=== PATIENT | male | born 1965 | race Caucasian/White ===

== ENCOUNTER 2018-09-02 20:29 | Emergency (ER) | payer BC, OTHER ==
[~2018-09-02 20:29] MED LIST: ISOVUE-370 76%-LOCM 1 ML ONE
--- NOTE | 2018-09-02 20:59 | RAD ---
ONE VIEW CHEST: 09/02/18 HISTORY: Sudden onset weakness and difficulty breathing. COMPARISON: None. FINDINGS: Portable upright chest: Normal cardiac silhouette. Pulmonary vessels and hilum are normal. Costophrenic angles are clear. No consolidation or mass. No pneumothorax or osseous abnormality. IMPRESSION: No acute cardiopulmonary process. POS: [facility]
[2018-09-02 21:21] LABS: #Eosinphils 0.3 thou/uL (0.0-0.7); #Lymphocytes 1.9 thou/uL (1.20-3.40); #Monocytes 0.5 thou/uL (0.11-0.59); #Neutrophils 2.4 thou/uL (1.40-6.50); %Basophils 0.6 % (0.0-1.0); %Eosinophils 6.1 % (0.0-10.0); %Lymphocytes 36.6 % (21.0-51.0); %Neutrophils 46.7 % (42.0-75.0); Hemoglobin 14.6 g/dL (14.0-18.0); Mean Corpuscular HGB CONC 35.4 g/dL (32.0-36.0); Mean Corpuscular Hemoglobin 32.3 pg (27.0-31.0); Mean Corpuscular Volume 91.1 fL (78.0-98.0); Mean Platelet Volume 8.3 fL (7.4-10.4); Platelet Count 223 thou/uL (130-400); RBC Distribution Width 13.9 % (11.5-14.5); Red Blood Cell (RBC) Count 4.52 mill/uL (4.70-6.10); White Blood Cell (WBC) Count 5.2 thou/uL (4.8-10.8)
[2018-09-02 21:41] LABS: ALT (SGPT) 62 U/L (8-55); AST (SGOT) 39 U/L (5-34); Albumin 4.3 g/dL (3.5-5.0); Alkaline Phosphatase 80 U/L (40-150); Anion Gap 18 mmol/L (10-20); BUN (Urea Nitrogen) 19 mg/dL (8.4-25.7); Bilirubin, Total 0.3 mg/dL (0.2-1.2); CK (CPK) 375 U/L (30-200); Calc. Creatinine Clearance 0 mL/min (70-130); Calcium 8.6 mg/dL (7.8-10.44); Carbon Dioxide 19 mmol/L (22-29); Chloride 107 mmol/L (98-107); Estimated GFR-MDRD 61; Globulin 2.6 g/dL (2.4-3.5); Glucose 78 mg/dL (70-105); Protein, Total 6.9 g/dL (6.0-8.3); Sodium 140 mmol/L (136-145)
[2018-09-02 21:51] LABS: CKMB 4.9 ng/mL (0-6.6); Troponin I Less than 0.010 ng/mL (< 0.028)
--- NOTE | 2018-09-02 23:41 | CT ---
CT ANGIOGRAM OF THE CHEST 09/02/18 HISTORY: Dyspnea. Weakness and cough x2 days. COMPARISON: None. TECHNIQUE: CT angiogram of the chest is performed in the axial plane. Three dimensional reformatted images are s ubmitted for interpretation. FINDINGS: Trachea and central bronchi are patent. Dependent atelectatic changes. No consolidation or mass. No p leural effusion. No pneumothorax. The visualized solid organs are unremarkable. There are nonspecific periaortic and aortocaval lymph nodes. Additional nonspecific mesenteric lymph nodes are noted. The thoracic aorta and upper abdominal aorta have a normal caliber. No periaortic fat stranding. Jackie ac artery origin, superior mesenteric artery origin, bilateral renal artery ostia are unremarkable. No mediastinal mass, lymphadenopathy, or hematoma. Heart size is within normal limits. No pericardial fluid. There is adequate contrast opacification of the pulmonary arterial system to the level of the segment al arteries. No filling defect to suggest a thromboembolism. No lytic or blastic lesion in the osseous structures. IMPRESSION: No evidence of pulmonary artery embolism to the level of the segmental arteries. POS: [facility]
== END 2018-09-02 23:27 | disposition home or self-care (01) ==
LOC: ERS 20:29
DX: E86.0 Dehydration (principal); I10 Essential (primary) hypertension; I71.6 Thoracoabdominal aortic aneurysm, without rupture; E78.5 Hyperlipidemia, unspecified; F31.9 Bipolar disorder, unspecified; Z79.899 Other long term (current) drug therapy; Z79.82 Long term (current) use of aspirin
CPT/HCPCS: 36415; 71045; 71275; 80053; 82550; 82553; 83880; 84484; 85025; 87040; 93005; 94760; 96360

== ENCOUNTER 2019-09-21 13:58 | Outpatient (CLI) | payer BC ==
[2019-09-21 15:20] LABS: Hemoglobin 14.9 g/dL (14.0-18.0); Mean Corpuscular HGB CONC 33.8 g/dL (32.0-36.0); Mean Corpuscular Hemoglobin 30.3 pg (27.0-31.0); Mean Corpuscular Volume 89.8 fL (78.0-98.0); Mean Platelet Volume 8.5 fL (7.4-10.4); Platelet Count 213 thou/uL (130-400); RBC Distribution Width 13.3 % (11.5-14.5); White Blood Cell (WBC) Count 5.9 thou/uL (4.8-10.8)
[2019-09-21 15:26] LABS: INR-International Normal Ratio 0.9; PTT 29.3 SEC (22.9-36.1); Prothrombin Time 12.6 SEC (12.0-14.7)
[2019-09-21 15:44] LABS: Anion Gap 13 mmol/L (10-20); BUN (Urea Nitrogen) 12 mg/dL (8.4-25.7); Calc. Creatinine Clearance 0 mL/min (70-130); Calcium 9.4 mg/dL (7.8-10.44); Carbon Dioxide 26 mmol/L (22-29); Chloride 108 mmol/L (98-107); Estimated GFR-MDRD 54; Glucose 62 mg/dL (70-105); Potassium 4.4 mmol/L (3.5-5.1); Sodium 143 mmol/L (136-145)
== END 2019-09-21 13:59 | disposition home or self-care (01) ==
LOC: LABBT 13:58
PROVIDERS: ATTEND Surgery
DX: Z01.818 Encounter for other preprocedural examination (principal); M54.12 Radiculopathy, cervical region; M48.02 Spinal stenosis, cervical region
CPT/HCPCS: 80048; 85027; 85610; 85730; 93005; 93010

== ENCOUNTER 2019-09-22 06:21 | Day surgery (SDC) | payer BC ==
[2019-09-21 14:25] VITALS: BMI 27.8
[2019-09-22] MEDS ORDERED: Thrombin 5000 UNITS/5 ML VIAL ONE (06:29)
[2019-09-22] MEDS ORDERED: Sodium Chloride 0.9% 10 ML ONE (06:29)
[2019-09-22] MEDS ORDERED: Clindamycin/D5W 900 mg/50 ml Premix Bag ONE (06:33)
[2019-09-22] MEDS ORDERED: Levofloxacin 500 mg/D5W 100 ml Premix Bag ONE (06:33)
[2019-09-22] MEDS ORDERED: Fentanyl 100 MCG/2 ML VIAL ONE ×5 (07:19→11:26)
[2019-09-22] MEDS ORDERED: HYDROmorphone 2 MG/ML VIAL ONE (09:33)
[2019-09-22] MEDS ORDERED: HYDROmorphone 2 MG/ML VIAL SLOW IVP PRN (09:42)
[2019-09-22] MEDS ORDERED: Ondansetron HCl/PF 4 MG/2 ML Vial IVP PRN (09:42)
[2019-09-22] MEDS ORDERED: Morphine Sulfate 2 MG/ML SYRINGE SLOW IVP PRN (09:42)
[2019-09-22] MEDS ORDERED: Promethazine HCl 25 MG/ML VIAL IM PRN (09:42)
[2019-09-22] MEDS ORDERED: PACU-Morphine 4MG/ML VIAL SLOW IVP PRN (09:42)
[2019-09-22] MEDS ORDERED: Promethazine HCl 25 MG/ML VIAL SLOW IVP PRN (09:42)
[2019-09-22] MEDS ORDERED: traMADol HCl 50 MG TAB PO PRN (10:08)
[2019-09-22] MEDS ORDERED: Fleet Enema 133 ML BOT PR PRN (10:08)
[2019-09-22] MEDS ORDERED: Ondansetron PF 4 MG/2 ML Vial IVP PRN (10:08)
[2019-09-22] MEDS ORDERED: Mag-Al 1200 mg/1200 mg/30 ML UDCUP PO PRN (10:08)
[2019-09-22] MEDS ORDERED: Acetaminophen/Codeine 30-300mg Tablet PO PRN (10:08)
[2019-09-22] MEDS ORDERED: tiZANidine HCl 4 MG TAB PO PRN (10:08)
[2019-09-22] MEDS ORDERED: Bisacodyl 10 MG SUPP PR PRN (10:08)
[2019-09-22] MEDS ORDERED: Milk Of Magnesia 30 ML UDCUP PO PRN (10:08)
[2019-09-22] MEDS ORDERED: Acetaminophen 325 MG TAB PO PRN (10:08)
[2019-09-22] MEDS ORDERED: Diazepam 2 MG TAB PO PRN (10:19)
[2019-09-22] MEDS ORDERED: tiZANidine HCl 4 MG TAB ONE (11:04)
[2019-09-22] MEDS ORDERED: Cyclobenzaprine 10 MG TAB PO PRN (11:17)
[2019-09-22] MEDS ORDERED: HYDROmorphone 0.5 MG/0.5 ML SYRINGE ONE (11:47)
[2019-09-22] MEDS ORDERED: Vancomycin HCl 1.25 GM in Sodium Chloride 0.9% 250 ML 300 ML IVPB SCH (12:00)
[2019-09-22] MEDS ORDERED: Vancomycin HCl 1.25 GM in Sodium Chloride 0.9% 250 ML 250 ML IVPB SCH (13:15)
[2019-09-22] MEDS: Sodium Chloride 0.9% 1,000 ML IV SCH (13:21)
[2019-09-22] MEDS ORDERED: Ondansetron PF 4 MG/2 ML Vial ONE (13:25)
[2019-09-22] MEDS ORDERED: Lidocaine 1% PF 5 ML VIAL ONE (13:25)
[2019-09-22] MEDS ORDERED: Dexamethasone 10 MG/ML VIAL ONE (13:25)
[2019-09-22] MEDS ORDERED: Rocuronium Bromide 10 MG/ML (10ML VIAL) ONE (13:25)
[2019-09-22] MEDS ORDERED: Glycopyrrolate 0.2 MG/ML 5 ML SYRINGE ONE (13:25)
[2019-09-22] MEDS ORDERED: PROPOFOL 200 MG/20 ML VIAL ONE (13:25)
[2019-09-22] MEDS: HYDROcodone/Acetaminophen 7.5/325 mg Tablet PO PRN ×2 (13:43→20:09)
[2019-09-22] MEDS: Pregabalin 50 MG CAP PO SCH ×2 (16:05→20:10)
[2019-09-22] MEDS: Morphine 2 MG/ML SYRINGE SLOW IVP PRN ×2 (17:47→20:09)
[2019-09-22] MEDS ORDERED: diphenhydrAMINE 25 MG CAP PO PRN (20:37)
[2019-09-22] MEDS ORDERED: Zolpidem Tartrate 5 MG TAB PO PRN (20:37)
[2019-09-22] MEDS ORDERED: ESZOPICLONE 3 MG PO SCH (21:00)
[2019-09-22] MEDS ORDERED: lamoTRIgine 100 MG TAB PO SCH (21:00)
[2019-09-22] MEDS ORDERED: Atorvastatin Calcium 40 MG TAB PO SCH (21:00)
[2019-09-23] MEDS: Sodium Chloride 0.9% 1,000 ML IV SCH (02:17)
[2019-09-23] MEDS: Morphine 2 MG/ML SYRINGE SLOW IVP PRN ×2 (05:59→13:53)
[2019-09-23] MEDS: HYDROcodone/Acetaminophen 7.5/325 mg Tablet PO PRN ×2 (05:59→13:54)
[2019-09-23] MEDS ORDERED: Bupropion 150 MG XL TAB PO SCH (09:00)
[2019-09-23] MEDS ORDERED: Loratadine/Pseudoephedrine 10/240 mg Tablet PO SCH (09:00)
[2019-09-23] MEDS ORDERED: CONCERTA 54 MG PO SCH (09:00)
[2019-09-23] MEDS: Pregabalin 50 MG CAP PO SCH (09:16)
[2019-09-23] MEDS: Losartan 25 MG TAB PO SCH ×2 (09:18→09:20)
[2019-09-23] MEDS ORDERED: Vancomycin HCl 1.25 GM in Sodium Chloride 0.9% 250 ML 250 ML IVPB SCH (12:00)
--- NOTE | 2019-09-23 12:06 | OP ---
DATE OF PROCEDURE: 09/22/2019 PREPROCEDURE DIAGNOSIS: Neck and arm pain with cervical stenosis. POSTPROCEDURE DIAGNOSIS: Neck and arm pain with cervical stenosis. DELIVERY MERCHANDISER: Audie Mendoza PA-C. PROCEDURES PERFORMED: 1. Anterior C4-C5 and C5-C6 diskectomies for decompression of spinal cord nerve roots. 2. Placement of interbody spacer C4-C5 and C5-C6 packed with local bone autograft, obtained from same incision of allograft for arthrodesis. 3. Use of operative microscope for microdissection. 4. Anterior cervical plate and screw fixation, C4, C5, C6. DESCRIPTION OF PROCEDURE: After informed consent was obtained from the patient, the patient was brought to the OR. Proper patient, pause, and identification were carried out. He was placed under excellent general endotracheal anesthesia and positioned supine on the OR table. All appropriate points were padded. We identified the anterior C4, C5, and C6 segments and a linear joshua was made over this region and a neck crease. We then proceeded lateral to the larynx, pharynx, tracheoesophageal bundle medial to the right carotid sheath. We identified the prevertebral layer of deep cervical fascia and the longus colli muscles. Retractors were placed. We then performed distraction to identify the C4-C5 segment. We then did diskectomy at C4-C5 with the operative microscope for microdissection, then had decompression of spinal cord and bilateral C5 nerve roots. We then prepared the endplates and placed interbody spacer at C4-C5 for arthrodesis. Distraction was released. We did the same thing at C5-C6 with decompression of spinal cord nerve roots at C6 origin and I would prepare the endplates and placed interbody spacer, packed local bone autograft and allograft and released the distraction. Arthrodesis had been initiated at both segments. Microscope was removed. Anterior cervical plate and screw fixation were done at C4, C5, C6. Final tightening occurred. Copious irrigation occurred throughout as did maximizing the hemostasis. The wound was then closed in anatomic layers over drain. The patient emerged from anesthesia. Job ID: [id number]
[2019-09-23 12:19] VITALS: BP 129/93; TEMP 98
[2019-09-23] MEDS ORDERED: Pantoprazole 40 MG VIAL IVP SCH (12:46)
[2019-09-23] MEDS ORDERED: Dexamethasone 6 MG in Sodium Chloride 0.9% 50 ML IVPB SCH (12:46)
--- NOTE | 2019-09-23 12:59 | PRG ---
DATE OF SERVICE: 09/23/2019 Bobby Bush is postoperative day 1 from C4-C6 ACDF. His drain output has been 65 mL overnight, it has trended down. We will plan to remove it. He is neurologically intact. He had increased left upper extremity likely C6 dermatomal pain postoperatively, but this is remitted to a degree with pain medication. We will give him a dose of Decadron. He has no dysphonia and minimal dysphagia. We will plan for dismissal. I am pleased with how he is doing. We went over do's and don'ts in the postoperative period. We will remove his drain. Job ID: [id number]
== END 2019-09-23 15:25 | disposition home or self-care (01) ==
LOC: SDC 06:21 → SURG B 12:30 → SDC 09-23 15:25
PROVIDERS: ATTEND Surgery
PROC: 0RG20A0 Fusion of 2 or more Cervical Vertebral Joints with Interbody Fusion Device, Anterior Approach, Anterior Column, Open Approach (ICD-10-PCS; principal; 2019-09-23)
PROC: 0RT30ZZ Resection of Cervical Vertebral Disc, Open Approach (ICD-10-PCS; principal; 2019-09-23)
DX: M48.02 Spinal stenosis, cervical region (principal); M50.121 Cervical disc disorder at C4-C5 level with radiculopathy; Z79.899 Other long term (current) drug therapy; Z88.1 Allergy status to other antibiotic agents
CPT/HCPCS: 76000; C1776; C9113; J0131; J1100; J1170; J1956; J2001; J2270; J2405; J2704; J3010; J3370; J3490; J7050

== ENCOUNTER 2019-10-31 13:41 | Outpatient (CLI) | payer BC ==
--- NOTE | 2019-10-31 13:59 | RAD ---
XR Cerv Sp Ap Lat STANDARD: 10/31/2019 12:00 AM CLINICAL HISTORY: Neck pain; six-week follow-up from surgery COMPARISON: None Bones: No acute fracture demonstrated. Intervertebral disc spaces and facet complexes: There is an ACDF spanning C4-C6. The instrumentation projects in expected position. Intervertebral disc cages are seen at C4-5 and C5-6. Mild cervical spondylosis is stable. Spinal alignment: Within normal limits. Prevertebral soft tissues: Normal. Lateral masses: Not well seen Lung apices: Clear. Additional findings: None. IMPRESSION: Postoperative cervical spine. Mild cervical spondylosis.
== END 2019-10-31 13:42 | disposition home or self-care (01) ==
LOC: TBSIIMAG 13:41
PROVIDERS: ATTEND Surgery
DX: M54.2 Cervicalgia (principal); M47.812 Spondylosis without myelopathy or radiculopathy, cervical region; Z98.1 Arthrodesis status
CPT/HCPCS: 72040

== ENCOUNTER 2022-04-21 16:02 | Outpatient (CLI) | payer BC | END 2022-04-21 16:03 | disposition home or self-care (01) | LOC: BICRAD 16:02 | PROVIDERS: ATTEND Surgery | DX: M54.12 Radiculopathy, cervical region (principal); M48.02 Spinal stenosis, cervical region; Z98.1 Arthrodesis status | CPT/HCPCS: 72040 ==

== ENCOUNTER 2022-06-10 14:24 | Outpatient (CLI) | payer BC | END 2022-06-10 14:25 | disposition home or self-care (01) | LOC: MRI 14:24 | PROVIDERS: ATTEND Surgery | DX: M54.50 Low back pain, unspecified (principal); M25.559 Pain in unspecified hip; M47.816 Spondylosis without myelopathy or radiculopathy, lumbar region; M47.815 Spondylosis without myelopathy or radiculopathy, thoracolumbar region; M47.817 Spondylosis without myelopathy or radiculopathy, lumbosacral region | CPT/HCPCS: 72148 ==